=== PATIENT | male | born 2000 | race Caucasian/White ===

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

== ENCOUNTER → 2022-05-02 | Outpatient (CLI) | payer OTHER ==
[2022-05-02 14:17] LABS: HEMOGLOBIN A1c 4.8 % (4.0-6.0)
[2022-05-02 14:28] LABS: ALBUMIN 4.5 G/DL (3.2-5.2); ALKALINE PHOSPHATASE 107 U/L (46-116); ALT/SGPT 16 U/L (7.0-40); AST/SGOT 19 U/L (<34); BILIRUBIN,TOTAL 0.3 MG/DL (0.3-1.2); BLOOD UREA NITROGEN 16 MG/DL (9-23); CALCIUM LEVEL 9.6 MG/DL (8.5-10.1); CARBON DIOXIDE LEVEL 29 MMOL/L (20-31); CHLORIDE LEVEL 106 MMOL/L (98-107); CHOLESTEROL LEVEL 165 MG/DL (<200); CHOLESTEROL RISK RATIO 3.17 (<5); CREATININE FOR GFR 0.97 MG/DL (0.70-1.30); FREE T4 1.16 NG/DL (0.89-1.76); GLOMERULAR FILTRATION RATE > 60.0 (>60); GLUCOSE, FASTING 93 MG/DL (60-100); LDL CHOLESTEROL 96.8 MG/DL (<100); NON-HDL-C 113 MG/DL; POTASSIUM SERUM 4.7 MMOL/L (3.5-5.1); SODIUM LEVEL 140 MMOL/L (136-145); THYROID STIMULATING HORMONE 1.527 uIU/ML (0.55-4.78); TRIGLYCERIDES LEVEL 81 MG/DL (<150)
[2022-05-02 14:29] LABS: TOTAL 25(OH) VITAMIN D 19.6 NG/ML (20.0-100.0)
== END ==
LOC: M RAD 10:47
PROVIDERS: ATTEND Nurse Practitioner Family
DX: K59.00 Constipation, unspecified (principal); R42 Dizziness and giddiness; Z13.228 Encounter for screening for other metabolic disorders

== ENCOUNTER 2022-09-07 14:36 | Emergency (ER) | payer OTHER ==
[~2022-09-07] VITALS: Ht 162.6 cm; Wt 59.3 kg
[2022-09-07 16:59] VITALS: BP 127/74
== END 2022-09-07 17:04 | disposition home or self-care (01) ==
LOC: M ED 14:36
DX: R04.0 Epistaxis (principal); F17.200 Nicotine dependence, unspecified, uncomplicated; F12.10 Cannabis abuse, uncomplicated; F10.10 Alcohol abuse, uncomplicated

== ENCOUNTER 2022-12-26 13:30 | Emergency (ER) | payer OTHER ==
[~2022-12-26] VITALS: Ht 162.6 cm; Wt 58.9 kg
[~2022-12-26 13:30] MED LIST: BACI500O8 TOP; CEPH500C PO
[2022-12-26 13:31] VITALS: BP 118/65; TEMP 97.9; O2SAT 98
== END 2022-12-26 18:12 | disposition left against medical advice (07) ==
LOC: M ED 13:30
DX: Z53.21 Procedure and treatment not carried out due to patient leaving prior to being seen by health care provider (principal)

== ENCOUNTER → 2023-05-01 | Outpatient (REF) | payer OTHER | LOC: M LAB REF 11:29 | PROVIDERS: ATTEND Physician Assistant Medical | DX: R05.9 Cough, unspecified (principal) ==